=== PATIENT | male | born 1960 | race African-American/Black ===

== ENCOUNTER 2023-05-06 15:44 | Emergency (ER) | payer MEDICAID ==
[~2023-05-06] VITALS: Ht 180.3 cm; Wt 74.8 kg
[2023-05-06 15:55] VITALS: BP 203/130; PULSE 78; RESP 20; TEMP 98; O2SAT 97
[2023-05-06] MEDS ORDERED: MORPHINE SULFATE 4 MG/ML SYR IVP ONE ×2 (16:10→17:40)
[2023-05-06] MEDS ORDERED: ONDANSETRON 4 MG/2 ML VIAL IVP ONE (16:10)
[2023-05-06] MEDS ORDERED: LIDOCAINE/EPI 2% 1:100000 20 ML VIAL INJ ONE (16:25)
[2023-05-06 16:30] VITALS: O2SAT 97
[2023-05-06] MEDS ORDERED: NACL 0.9% 500 ML IV ONE (18:55)
[2023-05-06 19:09] LABS: BASOPHILS % (AUTO) 0.7 % (0.0-2.0); EOSINOPHILS # (AUTO) 0.1 K/uL (0-0.4); EOSINOPHILS % (AUTO) 1.5 % (0.0-4.0); HEMATOCRIT 42.1 % (36-52); HEMOGLOBIN 14.2 g/dL (12.0-18.0); LYMPHOCYTES # (AUTO) 1.1 K/uL (2.0-11.5); LYMPHOCYTES % (AUTO) 20.4 % (20.5-51.1); MEAN CORPUSCULAR HEMOGLOBIN 31 pg (27-31); MEAN CORPUSCULAR HGB CONC 34 g/dL (33-37); MEAN CORPUSCULAR VOLUME 92.5 fL (80-94); MONOCYTES # (AUTO) 0.5 K/uL (0.8-1.0); MONOCYTES % (AUTO) 8.7 % (1.7-9.3); NEUTROPHILS # (AUTO) 3.7 K/uL (1.8-7.7); NEUTROPHILS % (AUTO) 68.7 % (42.2-75.2); PLATELET COUNT (AUTO) 282 K/uL (140-450); RED BLOOD CELL COUNT(AUTO) 4.55 MIL/uL (4.20-6.10); RED CELL DISTRIBUTION WIDTH 13.8 % (11.6-13.7); WHITE BLOOD COUNT (AUTO) 5.4 K/uL (4.8-10.8)
[2023-05-06 19:24] VITALS: BP 187/98; PULSE 51; RESP 15; O2SAT 97
[2023-05-06 19:24] LABS: ALBUMIN 3.4 g/dL (3.4-5.0); ANION GAP 10.1 (8-16); CALCIUM 8.7 mg/dL (8.5-10.1); CARBON DIOXIDE 29.7 mmol/L (21-32); CREATININE 0.9 mg/dL (0.6-1.3); POTASSIUM 3.8 mmol/L (3.5-5.1); TOTAL BILIRUBIN 0.3 mg/dL (0.0-1.0); TOTAL PROTEIN, SERUM 6.8 g/dL (6.4-8.2)
[2023-05-06 19:32] LABS: INR 0.97 (0.8-1.2); PARTIAL THROMBOPLASTIN TIME 29.1 secs (22-35.6); PROTHROMBIN TIME 10.2 secs (10.8-13.4)
== END 2023-05-06 20:40 | disposition left against medical advice (07) ==
LOC: MED 15:44
DX: S51.812A Laceration without foreign body of left forearm, initial encounter (principal); Y04.0XXA Assault by unarmed brawl or fight, initial encounter; Y92.89 Other specified places as the place of occurrence of the external cause; Y93.89 Activity, other specified; Y99.8 Other external cause status
CPT/HCPCS: 12002; 36415; 73206; 80053; 85025; 85610; 85730; 90471; 90715; 96374; 96375; 96376; 99285; J2001; J2270; J2405